=== PATIENT | female | born 2000 | race American Indian/Alaskan Native ===

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

== ENCOUNTER 2019-10-14 01:38 | Emergency (ER) | payer MEDICAID ==
--- NOTE | 2019-10-14 01:48 | EDM.PDOC ---
ED HPI GENERAL MEDICAL PROBLEM - General Stated Complaint: ANKLE PAIN Time Seen by Provider: 10/14/19 01:44 Source of Information: Reports: Patient, RN History Limitations: Reports: No Limitations - History of Present Illness INITIAL COMMENTS - FREE TEXT/NARRATIVE: C/O severe pain to right ankle. Fell leaving work around 5pm . Xrayed at S given tramadol, taken one dose without relief. Foot kept up in boot and using crutches. Last dose 5pm. - Related Data Allergies Allergy/AdvReac Type Severity Reaction Status Date / Time No Known Allergies Allergy Verified 10/14/19 01:51 Home Meds: Home Meds Acetaminophen [Tylenol] 650 mg PO Q4H PRN tablet 11/08/18 [Rx] Ibuprofen [Motrin] 800 mg PO Q8H PRN tablet 11/08/18 [Rx] Past Medical History - Past Health History Medical/Surgical History: Denies Medical/Surgical History HEENT History: Reports: None Cardiovascular History: Reports: None Respiratory History: Reports: None Gastrointestinal History: Reports: None Genitourinary History: Reports: UTI, Recurrent Other Genitourinary History: on this visit complains of burning on urination. 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 FAMILY PRESERVATION OFFICER History: 2 months post Musculoskeletal History: Reports: None Neurological History: Reports: None Psychiatric History: Reports: None Endocrine/Metabolic History: Reports: None Hematologic History: Reports: Anemia Immunologic History: Reports: None Oncologic (Cancer) History: Reports: None Dermatologic History: Reports: None - Infectious Disease History Infectious Disease History: Reports: Chicken Pox - Past Surgical History Head Surgeries/Procedures: Reports: None Social & Family History - Family History Family Medical History: Noncontributory - Caffeine Use Caffeine Use: Reports: Soda Review of Systems - Review of Systems Review Of Systems: Comprehensive ROS is negative, except as noted in HPI. ED EXAM, GENERAL - Physical Exam Exam: See Below Exam Limited By: No Limitations General Appearance: Alert, Mild Distress Ears: Normal External Exam, Hearing Grossly Normal Nose: Normal Inspection Throat/Mouth: Normal Inspection Head: Atraumatic, Normocephalic Neck: Normal Inspection Respiratory/Chest: No Respiratory Distress, Lungs Clear Cardiovascular: Regular Rate, Rhythm GI/Abdominal: Soft Extremities: Limited Range of Motion (right ankle). No: Normal Range of Motion Neurological: Alert, Oriented Psychiatric: Normal Affect, Normal Mood Skin Exam: Warm, Dry, Ecchymosis. No: Intact ( medial right ankle open 3mm blistered area no weeping. base without erythema. ), Increased Warmth Course - Vital Signs Last Recorded V/S: Last Vital Signs Temp 97.5 F 10/14/19 01:51 Pulse 88 10/14/19 01:51 Resp 16 10/14/19 01:51 BP 123/57 L 10/14/19 01:51 Pulse Ox 99 10/14/19 01:51 - Orders/Labs/Meds Orders: Active Orders 24 hr Category Date Time Status Ankle Min 3V Rt [CR] Urgent Exams 10/14/19 01:48 Ordered Meds: Medications Discontinued Medications Generic Name Dose Route Start Last Admin Trade Name Freq PRN Reason Stop Dose Admin Hydrocodone Bitart/Acetaminophen 1 tab 10/14/19 02:02 10/14/19 02:31 [place] 325-10 Mg PO 10/14/19 02:03 1 tab ONETIME ONE Administration - Radiology Interpretation Free Text/Narrative:: right trimalleolar fracture, see report Departure - Departure Time of Disposition: 02:34 Disposition: Home, Self-Care 01 Condition: Good Clinical Impression: Trimalleolar fracture of right ankle Qualifiers: Encounter type: initial encounter Fracture type: closed Qualified Code(s): S82.851A - Displaced trimalleolar fracture of right lower leg, initial encounter for closed fracture - Discharge Information *PRESCRIPTION DRUG MONITORING PROGRAM REVIEWED*: No *COPY OF PRESCRIPTION DRUG MONITORING REPORT IN PATIENT EZRA: No Instructions: Ankle Fracture Forms: ED Department Discharge Additional Instructions: Wear boot elevate ice non weight bearing ortho follow up as scheduled sooner if increased pain hydrocodone 10/325 one every 6 hours as needed for severe pain #12 may alternate ibuprofen every 4-6 hours - My Orders Last 24 Hours: My Active Orders 10/14/19 01:48 Ankle Min 3V Rt [CR] Urgent - Assessment/Plan Last 24 Hours: My Active Orders 10/14/19 01:48 Ankle Min 3V Rt [CR] Urgent
[2019-10-14 01:54] VITALS: BP 123/57; PULSE 88
[2019-10-14] MEDS ORDERED: Acetaminophen/HYDROcodone 325-10 MG Tab PO ONE (02:02)
== END 2019-10-14 02:44 | disposition home or self-care (01) ==
LOC: DL.ED 01:38
DX: S82.851A Displaced trimalleolar fracture of right lower leg, initial encounter for closed fracture (principal); W01.0XXA Fall on same level from slipping, tripping and stumbling without subsequent striking against object, initial encounter; Y92.89 Other specified places as the place of occurrence of the external cause; Y99.0 Civilian activity done for income or pay
CPT/HCPCS: 73610; 99283; A9270

== ENCOUNTER 2019-10-20 22:05 | Emergency (ER) | payer MEDICAID ==
[2019-10-20 22:13] VITALS: BP 119/60; PULSE 98
--- NOTE | 2019-10-20 22:54 | EDM.PDOC ---
ED HPI GENERAL MEDICAL PROBLEM - General Chief Complaint: Lower Extremity Injury/Pain Stated Complaint: INJURED RT ANKLE Time Seen by Provider: 10/20/19 22:10 Source of Information: Reports: Patient, EMS History Limitations: Reports: No Limitations - History of Present Illness INITIAL COMMENTS - FREE TEXT/NARRATIVE: Ed with c/o severe pain to right ankle. Known fracture, Claims not weight bearing on ankle but does admit not wearing boot all the time when at home. Taking one OTC ibuprofen and one OTC tylenol every 4 hours for pain. Right Ankle Pain Score (Numeric/FACES): 8 - Related Data Allergies Allergy/AdvReac Type Severity Reaction Status Date / Time No Known Allergies Allergy Verified 10/20/19 22:13 Home Meds: Home Meds Acetaminophen [Tylenol] 650 mg PO Q4H PRN tablet 11/08/18 [Rx] Ibuprofen [Motrin] 800 mg PO Q8H PRN tablet 11/08/18 [Rx] Past Medical History - Past Health History Medical/Surgical History: Denies Medical/Surgical History HEENT History: Reports: None Cardiovascular History: Reports: None Respiratory History: Reports: None Gastrointestinal History: Reports: None Genitourinary History: Reports: UTI, Recurrent Other Genitourinary History: on this visit complains of burning on urination. 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: Other DRYERMAN/WOMAN History: IUD in place, no menstrual cycle since December 2018 Musculoskeletal History: Reports: Other (See Below) Other Musculoskeletal History: Boot to R foot, reports broken tibia Neurological History: Reports: None Psychiatric History: Reports: None Endocrine/Metabolic History: Reports: None Hematologic History: Reports: Anemia Immunologic History: Reports: None Oncologic (Cancer) History: Reports: None Dermatologic History: Reports: None - Infectious Disease History Infectious Disease History: Reports: Chicken Pox - Past Surgical History Head Surgeries/Procedures: Reports: None Social & Family History - Family History Family Medical History: Noncontributory - Tobacco Use Smoking Status *Q: Never Smoker Second Hand Smoke Exposure: No - Caffeine Use Caffeine Use: Reports: Soda - Recreational Drug Use Recreational Drug Use: No Review of Systems - Review of Systems Review Of Systems: Comprehensive ROS is negative, except as noted in HPI. ED EXAM, GENERAL - Physical Exam Exam: See Below Exam Limited By: No Limitations General Appearance: Alert, Mild Distress Throat/Mouth: Normal Voice Respiratory/Chest: No Respiratory Distress, Lungs Clear Cardiovascular: Normal Peripheral Pulses Extremities: Joint Swelling, Limited Range of Motion (right ankle) Neurological: Alert, Oriented Psychiatric: Normal Affect Course - Vital Signs Last Recorded V/S: Last Vital Signs Temp 97.4 F 10/20/19 22:09 Pulse 98 10/20/19 22:09 Resp 18 10/20/19 22:09 BP 119/60 10/20/19 22:09 Pulse Ox 99 10/20/19 22:09 - Orders/Labs/Meds Orders: Active Orders 24 hr Category Date Time Status Ankle Min 3V Lt [CR] Urgent Exams 10/20/19 22:34 Stop Req Ankle Min 3V Rt [CR] Urgent Exams 10/20/19 22:46 Taken Meds: Medications Discontinued Medications Generic Name Dose Route Start Last Admin Trade Name Freq PRN Reason Stop Dose Admin Ibuprofen 600 mg 10/20/19 23:39 10/20/19 23:46 Motrin PO 10/20/19 23:40 600 mg ONETIME ONE Administration - Radiology Interpretation Free Text/Narrative:: [facility] Final Radiology Report Call: [phone] assistance Online chat: [email or web address] Name: CEE GARCIA Age: 19Years F Date: 10/20/2019 SSN: -- : 2000 Study: XR ANKLE COMPLETE MIN 3 VIEWS RIGHT Requesting Physician: CYNDY NUNEZ Images: 3 Addl Studies: Provided Clinical History: Contrast: Contrast Medium: Contrast Amount: Contrast Method: CONFIDENTIALITY STATEMENT This report is intended only for use by the referring physician, and only in accordance with law. If you received this in error, call [phone]. Page 1 of 1 PROCEDURE INFORMATION: Exam: XR Right Ankle Exam date and time: 10/20/2019 10:47 PM Age: 19 years old Clinical history: Other: Known fracture, continued pain, not compliant TECHNIQUE: Imaging protocol: XR Right ankle. Views: 3 or more views. COMPARISON: CR Ankle Min 3V Rt 10/14/2019 2:06 AM FINDINGS: Bones/joints: Slightly displaced medial malleolus fracture. Slightly displaced lateral malleolus fracture. Subtle fracture through the posterior malleolus. Overall alignment at the ankle joint is maintained. Soft tissues: Soft tissue swelling. IMPRESSION: Trimalleolar fracture. Findings look fairly similar to the prior. Fibular fracture slightly more displaced. Thank you for allowing us to participate in the care of your patient. Dictated and Authenticated by: Roddy Johns MD 10/20/2019 11:12 PM Central Time ([place] & [place] Departure - Departure Time of Disposition: 23:41 Disposition: Home, Self-Care 01 Condition: Good Clinical Impression: Closed trimalleolar fracture Right ankle pain Qualifiers: Chronicity: chronic Qualified Code(s): M25.571 - Pain in right ankle and joints of right foot; G89.29 - Other chronic pain - Discharge Information *PRESCRIPTION DRUG MONITORING PROGRAM REVIEWED*: No *COPY OF PRESCRIPTION DRUG MONITORING REPORT IN PATIENT EZRA: No Instructions: Ankle Fracture, [id number] Forms: ED Department Discharge Additional Instructions: alternate tylenol 650mg and ibuprofen 600mg every 4 hours as needed do not remove boot. \ non weight bearing use crutches Make follow up appointment On as scheduled - My Orders Last 24 Hours: My Active Orders 10/20/19 22:34 Ankle Min 3V Lt [CR] Urgent 10/20/19 22:46 Ankle Min 3V Rt [CR] Urgent - Assessment/Plan Last 24 Hours: My Active Orders 10/20/19 22:34 Ankle Min 3V Lt [CR] Urgent 10/20/19 22:46 Ankle Min 3V Rt [CR] Urgent
[2019-10-20] MEDS ORDERED: Ibuprofen 600 MG Tab PO ONE (23:39)
== END 2019-10-20 23:55 | disposition home or self-care (01) ==
LOC: DL.ED 22:05
DX: S82.851A Displaced trimalleolar fracture of right lower leg, initial encounter for closed fracture (principal); G89.29 Other chronic pain; X58.XXXA Exposure to other specified factors, initial encounter
CPT/HCPCS: 73610; 99283; A9270

== ENCOUNTER 2020-08-09 23:31 | Emergency (ER) | payer MEDICAID ==
[2020-08-09 23:45] VITALS: BP 128/71; PULSE 91
[2020-08-09] MEDS ORDERED: cefTRIAXone 1 GM, Lidocaine 1% 2.1 ML IM ONE ×2 (23:48)
--- NOTE | 2020-08-10 00:02 | EDM.PDOC ---
ED HPI GENERAL MEDICAL PROBLEM - General Chief Complaint: ENT Problem Stated Complaint: TONSILS Time Seen by Provider: 08/09/20 23:50 Source of Information: Reports: Patient, RN History Limitations: Reports: No Limitations - History of Present Illness INITIAL COMMENTS - FREE TEXT/NARRATIVE: ED with c/o of Sore throat, difficulty eating and swallowing since Saturday, Has tried ibuprofen and salt water gargles but not helping. Denies fever chills, body aches. no ear pain, No difficulty breathing, No cough. Middle Throat Pain Score (Numeric/FACES): 10 - Related Data Allergies Allergy/AdvReac Type Severity Reaction Status Date / Time No Known Allergies Allergy Verified 08/09/20 23:48 Home Meds: Home Meds Acetaminophen [Tylenol] 650 mg PO Q4H PRN tablet 11/08/18 [Rx] Ibuprofen [Motrin] 800 mg PO Q8H PRN tablet 11/08/18 [Rx] Past Medical History - Past Health History Medical/Surgical History: Denies Medical/Surgical History HEENT History: Reports: None Cardiovascular History: Reports: None Respiratory History: Reports: None Gastrointestinal History: Reports: None Genitourinary History: Reports: UTI, Recurrent Other Genitourinary History: on this visit complains of burning on urination. 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: IUD in place, no menstrual cycle since December 2018 Musculoskeletal History: Reports: Other (See Below) Other Musculoskeletal History: Boot to R foot, reports broken tibia Neurological History: Reports: None Psychiatric History: Reports: None Endocrine/Metabolic History: Reports: None Hematologic History: Reports: Anemia Immunologic History: Reports: None Oncologic (Cancer) History: Reports: None Dermatologic History: Reports: None - Infectious Disease History Infectious Disease History: Reports: Chicken Pox - Past Surgical History Head Surgeries/Procedures: Reports: None Social & Family History - Family History Family Medical History: Noncontributory - Tobacco Use Smoking Status *Q: Never Smoker - Caffeine Use Caffeine Use: Reports: None - Recreational Drug Use Recreational Drug Use: No ED ROS ENT - Review of Systems Review Of Systems: Comprehensive ROS is negative, except as noted in HPI. ED EXAM, ENT - Physical Exam Exam: See Below Exam Limited By: No Limitations General Appearance: Alert, Mild Distress Eye Exam: Bilateral Eye: EOMI, PERRL Ears: Normal External Exam, Normal TMs Nose: Normal Inspection Mouth/Throat: Muffled Voice, Pharyngeal Erythema, Tonsillar Erythema, Tonsillar Swelling. No: Tonsillar Exudates, Uvular Deviation, Uvular Edema Head: Atraumatic, Normocephalic Neck: Lymphadenopathy (L), Lymphadenopathy (R) Respiratory/Chest: No Respiratory Distress, Lungs Clear, Normal Breath Sounds Cardiovascular: Normal Peripheral Pulses, Regular Rate, Rhythm GI/Abdominal: Soft Extremities: Normal Range of Motion Neurological: Alert, Oriented, Normal Cognition Psychiatric: Normal Affect, Normal Mood Skin: Warm, Dry, Intact, Normal Color Course - Vital Signs Last Recorded V/S: Last Vital Signs Temp 97.9 F 08/09/20 23:44 Pulse 91 08/09/20 23:44 Resp 16 08/09/20 23:44 BP 128/71 08/09/20 23:44 Pulse Ox 98 08/09/20 23:44 - Orders/Labs/Meds Orders: Active Orders 24 hr Category Date Time Status STREP SCRN A RAPID W CULT CONF [RM] Stat Lab 08/09/20 23:41 Received Meds: Medications Discontinued Medications Generic Name Dose Route Start Last Admin Trade Name Freq PRN Reason Stop Dose Admin Ceftriaxone Sodium 1 gm/ 0 gm 08/09/20 23:48 Lidocaine HCl 2.1 ml IM 08/09/20 23:49 ONETIME ONE Departure - Departure Time of Disposition: 00:03 Disposition: Home, Self-Care 01 Condition: Good Clinical Impression: Tonsillitis - Discharge Information *PRESCRIPTION DRUG MONITORING PROGRAM REVIEWED*: No *COPY OF PRESCRIPTION DRUG MONITORING REPORT IN PATIENT EZRA: No Instructions: Tonsillitis, [id number] Additional Instructions: increase fluids alternate tylenol 650mg and ibuprofen 600mg every 4 hours as needed continue salt water gargles chloraseptic throat spray as needed amoxicillin 875 one twice daily for one week follow up if symptoms worsen Sepsis Event Note (ED) - Evaluation Sepsis Screening Result: No Definite Risk - Focused Exam Vital Signs: Vital Signs Temp Pulse Resp BP Pulse Ox 08/09/20 23:44 97.9 F 91 16 128/71 98 - My Orders Last 24 Hours: My Active Orders 08/09/20 23:41 STREP SCRN A RAPID W CULT CONF [RM] Stat - Assessment/Plan Last 24 Hours: My Active Orders 08/09/20 23:41 STREP SCRN A RAPID W CULT CONF [RM] Stat
== END 2020-08-10 00:09 | disposition home or self-care (01) ==
LOC: DL.ED 23:31
DX: J03.90 Acute tonsillitis, unspecified (principal)
CPT/HCPCS: 87081; 87430; 96372; 99283; J0696; J2001

== ENCOUNTER 2020-10-28 02:11 | Emergency (ER) | payer MEDICAID ==
[2020-10-28] MEDS ORDERED: Amoxicillin/Clavulanate K 500-125 MG Tab PO ONE (02:26)
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
[2020-10-28 02:33] VITALS: BP 118/55; PULSE 92
== END 2020-10-28 02:41 | disposition home or self-care (01) ==
LOC: DL.ED 02:11
DX: J01.00 Acute maxillary sinusitis, unspecified (principal); R59.0 Localized enlarged lymph nodes
CPT/HCPCS: 99283; A9270-GY

== ENCOUNTER 2021-07-08 07:14 | Emergency (ER) | payer MEDICAID, OTHER ==
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
[2021-07-08 07:20] LABS: MDMA (ECSTASY), URINE NEGATIVE (NEGATIVE); METHADONE,URINE NEGATIVE (NEGATIVE); METHAMPHETAMINES,URINE NEGATIVE (NEGATIVE)
[2021-07-08 07:21] LABS: AMPHETAMINES,URINE NEGATIVE (NEGATIVE); BARBITURATES,URINE NEGATIVE (NEGATIVE); BENZODIAZEPINE,URINE NEGATIVE (NEGATIVE); OPIATES,URINE NEGATIVE (NEGATIVE); OXYCODONE,URINE NEGATIVE (NEGATIVE); PHENCYCLIDINE,URINE NEGATIVE (NEGATIVE); TCA,URINE NEGATIVE (NEGATIVE)
[2021-07-08] MEDS: Diphtheria,Pertussis(Acell),Tetanus Vaccine 0.5 ML Syringe IM ONE (07:25)
[2021-07-08] MEDS: ceFAZolin 1 GM in Sodium Chloride 0.9% 50 ML IV ONE (07:26)
[2021-07-08 07:34] LABS: ANION GAP 17.5 mEq/L (7-13); CHLORIDE,CL 103 mmol/L (98-107); SODIUM,NA 138 mmol/L (136-145)
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
[2021-07-08] MEDS: Iopamidol 612 MG/ML 100 ML Bottle IVPUSH ONE (07:55)
== END 2021-07-08 07:52 ==
LOC: DL.ED 07:14
DX: S31.133A Puncture wound of abdominal wall without foreign body, right lower quadrant without penetration into peritoneal cavity, initial encounter (principal); S51.831A Puncture wound without foreign body of right forearm, initial encounter; S31.030A Puncture wound without foreign body of lower back and pelvis without penetration into retroperitoneum, initial encounter; F10.129 Alcohol abuse with intoxication, unspecified; Y90.6 Blood alcohol level of 120-199 mg/100 ml; D64.9 Anemia, unspecified; Z79.899 Other long term (current) drug therapy; Z23 Encounter for immunization
CPT/HCPCS: 36415; 71260; 73060-RT; 73090-RT; 74177; 80053; 80305-QW; 80307; 81003; 81025; 82272; 85025; 90471; 90715; 96374; 99285-25; J0690; Q9967

== ENCOUNTER 2022-02-23 02:12 | Emergency (ER) | payer BC, MEDICAID ==
[2022-02-23] MEDS ORDERED: Oxymetazoline 0.05% Nasal Spray 30 ML Bottle NAS ONE (02:30)
[2022-02-23] MEDS ORDERED: Codeine/guaiFENesin 10-100 MG/5 ML Syrup 5 ML Cup PO ONE (02:54)
[2022-02-23] MEDS ORDERED: Ondansetron 4 MG Tab.DIS PO ONE (02:54)
[2022-02-23 03:06] VITALS: BP 115/64; PULSE 88
[2022-02-23 03:25] LABS: CORONAVIRUS COVID-19 NAA NEGATIVE (NEGATIVE)
== END 2022-02-23 04:05 | disposition home or self-care (01) ==
LOC: DL.ED 02:12
DX: J06.9 Acute upper respiratory infection, unspecified (principal); Z20.822 Contact with and (suspected) exposure to COVID-19
CPT/HCPCS: 0240U; 99283; A9270

== ENCOUNTER 2022-06-16 22:20 | Emergency (ER) | payer BC ==
[2022-06-16 22:44] VITALS: BP 107/62; PULSE 82
[2022-06-16] MEDS ORDERED: Hydrocortisone/Neomycin/Polymyxin B Otic Susp 10 ML Bottle ONE (22:49)
== END 2022-06-16 22:55 | disposition home or self-care (01) ==
LOC: DL.ED 22:20
DX: H60.501 Unspecified acute noninfective otitis externa, right ear (principal); Z79.899 Other long term (current) drug therapy
CPT/HCPCS: 99282; A9270

== ENCOUNTER 2024-04-15 12:36 | Emergency (ER) | payer BC, MEDICAID ==
[2024-04-15 12:24] LABS: BASOPHILS PERCENT AUTO 0.2 % (0.0-1.0); EOSINOPHILS PERCENT AUTO 0.1 % (1.0-3.0); HEMOGLOBIN 13.8 g/dL (12.0-16.0); LYMPHOCYTES PERCENT AUTO 9.5 % (20.5-50.1); MEAN CORPUSCULAR HEMOGLOBIN 28.9 pg (27.0-34.0); MEAN CORPUSCULAR HGB CONC 33.7 g/dL (33.0-35.0); MONOCYTES PERCENT AUTO 4.6 % (2-8); NEUTROPHILS PERCENT AUTO 85.6 % (42.2-75.2); PLATELET COUNT,PLT 315 10^3/uL (150-450); RED BLOOD CELL COUNT 4.77 10^6/uL (4.2-5.4); WHITE BLOOD CELL COUNT,WBC 10.5 10^3/uL (5.0-10.0)
[2024-04-15 12:31] LABS: APPEARANCE,URINE SLIGHTLY CLOUDY (CLEAR); BILIRUBIN,URINE NEGATIVE (NEGATIVE); COLOR,URINE YELLOW (YELLOW); GLUCOSE,URINE NEGATIVE (NEGATIVE); KETONES,URINE 15 (NEGATIVE); LEUKOCYTE ESTERASE,URINE LARGE (NEGATIVE); NITRITE,URINE NEGATIVE (NEGATIVE); OCCULT BLOOD,URINE TRACE-INTACT (NEGATIVE); PROTEIN,URINE NEGATIVE (NEGATIVE); UROBILINOGEN,URINE 0.2 mg/dL (0.2-1.0)
[2024-04-15 12:32] VITALS: BP 102/80; PULSE 93
[2024-04-15 12:38] LABS: BACTERIA,URINE MODERATE /HPF (0-FEW/HPF); EPITHELIAL CELLS,URINE MODERATE /HPF (NOT SEEN); MUCUS,URINE FEW /LPF (NOT SEEN); WBC,URINE 40-50 /HPF (0-5/HPF)
[2024-04-15 12:39] LABS: YEAST,URINE FEW /HPF (NOT SEEN)
[2024-04-15 12:40] LABS: A/G RATIO 0.9; ALBUMIN 3.5 g/dL (3.4-5.0); ANION GAP 15.8 mEq/L (7-13); BILIRUBIN TOTAL 0.5 mg/dL (0.2-1.0); BUN/CREATININE RATIO 7.7 (No establ ref range); CALCIUM 8.7 mg/dL (8.5-10.1); CREATININE 0.78 mg/dL (0.55-1.02); EST CRCL DRUG DOSING (CG) 99.21 mL/min; POTASSIUM,K 3.8 mmol/L (3.5-5.1); PROTEIN TOTAL,TP 7.3 g/dL (6.4-8.2)
[2024-04-24 10:58] LABS: SOURCE URINE
[2024-04-24 10:59] LABS: C.TRACHOMATIS BY TMA NEGATIVE; M GENITALIUM NEGATIVE; M GENITALIUM SOURCE NEGATIVE; N.GONORRHOEAE BY TMA NEGATIVE
== END 2024-04-15 13:00 | disposition home or self-care (01) ==
LOC: DL.ED 12:36
DX: O23.591 Infection of other part of genital tract in pregnancy, first trimester (principal); Z3A.09 9 weeks gestation of pregnancy
CPT/HCPCS: 36415; 76815; 80053; 81001; 84702; 85025; 87086; 87491; 87563; 87591; 99284; 99285

== ENCOUNTER 2024-06-20 14:07 | Emergency (ER) | payer BC ==
[2024-06-20 14:28] VITALS: BP 125/59; PULSE 90
[2024-06-20 15:06] LABS: APPEARANCE,URINE SLIGHTLY CLOUDY (CLEAR); BILIRUBIN,URINE NEGATIVE (NEGATIVE); COLOR,URINE DARK YELLOW (YELLOW); GLUCOSE,URINE 100 (NEGATIVE); KETONES,URINE 15 (NEGATIVE); LEUKOCYTE ESTERASE,URINE SMALL (NEGATIVE); NITRITE,URINE NEGATIVE (NEGATIVE); OCCULT BLOOD,URINE NEGATIVE (NEGATIVE); PROTEIN,URINE TRACE (NEGATIVE)
[2024-06-20 15:17] LABS: MUCUS,URINE MANY /LPF (NOT SEEN)
[2024-06-20 15:18] LABS: EPITHELIAL CELLS,URINE MANY /HPF (NOT SEEN); RBC,URINE NOT SEEN /HPF (0-5)
[2024-06-20 15:19] LABS: BACTERIA,URINE MODERATE /HPF (0-FEW/HPF)
[2024-06-20] MEDS: Take Home: metroNIDAZOLE 250 MG Tab, 8 Tab Pack PO ONE (15:36)
== END 2024-06-20 15:36 | disposition home or self-care (01) ==
LOC: DL.ED 14:07
DX: O23.592 Infection of other part of genital tract in pregnancy, second trimester (principal); Z3A.19 19 weeks gestation of pregnancy
CPT/HCPCS: 81001; 87210; 99283; A9270-GY

== ENCOUNTER 2024-11-04 03:08 | Inpatient (IN) | payer BC ==
[2024-11-04] MEDS ORDERED: Sodium Chloride 0.9% 10 ML Syringe FLUSH PRN ×2 (07:39→13:16)
[2024-11-04] MEDS ORDERED: Misoprostol 25 MCG (1/4 of 100 MCG) Tab PO PRN (07:39)
[2024-11-04] MEDS ORDERED: Ondansetron 4 MG/2 ML SDV IVPUSH PRN (07:39)
[2024-11-04] MEDS ORDERED: Carboprost Tromethamine 250 MCG/1 ML Amp IM PRN ×2 (07:39→13:14)
[2024-11-04] MEDS ORDERED: fentaNYL 100 MCG/2 ML SDV IVPUSH PRN ×2 (07:39→13:14)
[2024-11-04] MEDS ORDERED: Methylergonovine 0.2 MG/1 ML Amp IM PRN ×2 (07:39→13:13)
[2024-11-04] MEDS ORDERED: Tranexamic Acid 1,000 MG in Sodium Chloride 0.9% 100 ML IV PRN ×2 (07:39→13:16)
[2024-11-04] MEDS ORDERED: Naloxone 2 MG/2 ML Syringe IVPUSH PRN ×2 (07:39→13:15)
[2024-11-04] MEDS ORDERED: Acetaminophen 325 MG Tab PO PRN ×2 (07:39→13:14)
[2024-11-04] MEDS ORDERED: Lactated Ringers 1,000 ML IV SCH (07:45)
[2024-11-04] MEDS ORDERED: Oxytocin/Normal Saline 30 UNIT/500 ML BAG IV SCH (07:45)
[2024-11-04 12:32] LABS: HEMATOCRIT 35.5 % (37.0-47.0); HEMOGLOBIN 11.9 g/dL (12.0-16.0); MEAN CORPUSCULAR HEMOGLOBIN 28.6 pg (27.0-34.0); MEAN CORPUSCULAR HGB CONC 33.5 g/dL (33.0-35.0); MEAN CORPUSCULAR VOLUME 85.3 fL (80-100); RED BLOOD CELL COUNT 4.16 10^6/uL (4.2-5.4); WHITE BLOOD CELL COUNT,WBC 8.4 10^3/uL (5.0-10.0)
[2024-11-04] MEDS ORDERED: Misoprostol 50 MCG (1/2 of 100 MCG) Tab PO SCH (13:15)
[2024-11-04] MEDS: Misoprostol 50 MCG (1/2 of 100 MCG) Tab PO SCH ×2 (13:17→17:41)
[2024-11-04] MEDS: Lactated Ringers 1,000 ML IV SCH (19:15)
[2024-11-04] MEDS ORDERED: ePHEDrine 50 MG/ML SDV IVPUSH PRN (20:15)
[2024-11-04] MEDS ORDERED: Ropivacaine 200 MG in Premix Bag 1 BAG EPIDUR SCH (20:15)
[2024-11-04] MEDS ORDERED: Phenylephrine HCl In 0.9% NaCl 1 MG/10 ML Syringe IVPUSH PRN (20:15)
[2024-11-04] MEDS: Ondansetron 4 MG/2 ML SDV IVPUSH PRN (21:33)
[2024-11-05] MEDS: Oxytocin/Normal Saline 30 UNIT/500 ML BAG IV SCH (03:11)
[2024-11-05] MEDS ORDERED: Benzocaine/Menthol 20%-0.5% Spray 78 GM Cannister TOP PRN (03:26)
[2024-11-05] MEDS ORDERED: Witch Hazel Medicated Pads 100/Jar TOP PRN (03:26)
[2024-11-05] MEDS ORDERED: Oxytocin 10 Units/1 ML SDV IM PRN (03:26)
[2024-11-05] MEDS ORDERED: Sodium Chloride 0.9% 10 ML Syringe FLUSH PRN (03:26)
[2024-11-05] MEDS ORDERED: Tranexamic Acid 1,000 MG in Sodium Chloride 0.9% 100 ML IV PRN (03:26)
[2024-11-05] MEDS ORDERED: Acetaminophen 325 MG Tab PO PRN (03:26)
[2024-11-05] MEDS ORDERED: Misoprostol 100 MCG Tab RECTAL PRN (03:26)
[2024-11-05] MEDS ORDERED: Carboprost Tromethamine 250 MCG/1 ML Amp IM PRN (03:26)
[2024-11-05] MEDS ORDERED: Simethicone 80 MG Tab.Chew PO PRN (03:26)
[2024-11-05] MEDS: Ibuprofen 800 MG Tab PO SCH ×2 (06:35→06:44)
[2024-11-05] MEDS: Docusate Sodium 100 MG Cap PO PRN (08:42)
[2024-11-05] MEDS: Prenatal Multivitamin with Calcium/Folic Acid/Iron Tab PO SCH (08:43)
[2024-11-05] MEDS: Lidocaine 1% 30 ML SDV INJECT ONE (09:19)
[2024-11-05] MEDS: Lactated Ringers 1,000 ML IV ONE (09:19)
[2024-11-05] MEDS ORDERED: Ropivacaine 100 ML EPIDUR ONE (11:57)
[2024-11-05] MEDS ORDERED: Ondansetron 4 MG/2 ML SDV IV ONE (11:57)
[2024-11-05] MEDS ORDERED: Ketorolac 30 MG/ML SDV IVPUSH ONE (11:57)
[2024-11-05] MEDS: Acetaminophen 325 MG Tab PO PRN (19:08)
[2024-11-06 08:14] VITALS: BP 123/67; PULSE 76
== END 2024-11-06 09:48 | disposition home or self-care (01) | DRG 560 ==
LOC: DL.OB 03:08 → OBSVTOIN 11-05 03:08
PROVIDERS: ADMIT Family Medicine; ATTEND Family Medicine
PROC: 10E0XZZ Delivery of Products of Conception, External Approach (ICD-10-PCS; principal; 2024-11-05)
PROC: 00HU33Z Insertion of Infusion Device into Spinal Canal, Percutaneous Approach (ICD-10-PCS; 2024-11-05)
PROC: 3E0DXGC Introduction of Other Therapeutic Substance into Mouth and Pharynx, External Approach (ICD-10-PCS; 2024-11-05)
PROC: 10907ZC Drainage of Amniotic Fluid, Therapeutic from Products of Conception, Via Natural or Artificial Opening (ICD-10-PCS; 2024-11-05)
PROC: 3E0R3BZ Introduction of Anesthetic Agent into Spinal Canal, Percutaneous Approach (ICD-10-PCS; 2024-11-05)
DX: O99.214 Obesity complicating childbirth (principal); Z3A.39 39 weeks gestation of pregnancy; Z37.0 Single live birth
CPT/HCPCS: 36415; 51701; 51702; 59409; 85027; A9270-GY; C1729; J1885; J2405; J2590; J2795; J7120